=== PATIENT | male | born 1995 | race Caucasian/White ===

== ENCOUNTER 2025-04-22 11:57 | Emergency (ER) | payer OTHER, SELFPAY ==
[2025-04-22] VITALS (23 sets, daily range): BP systolic 143–169; BP diastolic 76–94; PULSE 69–94; RESP 8–22; TEMP 37.6; O2SAT 83–99
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
[2025-04-22 12:17] LABS: Abs Immature Grans 0.01 10^3/uL (0.0-0.06); HCT 43.2 % (40.0-50.0); HGB 15.6 g/dL (13.5-17.5); Immature Grans % 0.2 %; MCH 30.4 pg (27.0-33.0); MCHC 36.1 % (32.0-36.0); MCV 84 fL (80-95); MPV 9.3 fL (8.0-11.0); Platelet Count 289 10^3/uL (130-400); RBC 5.14 10^6/uL (4.36-5.78); RDW 11.2 % (11.8-14.1); RDW-SD 34.5 fL; WBC 5.83 10^3/uL (4.4-10.8)
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
[2025-04-22 12:30] LABS: ALT 35 U/L (16-63); AST 25 U/L (15-37); Albumin 4.4 g/dL (3.4-5.0); Alkaline Phosphatase 63 U/L (46-116); Anion Gap 12.7 mmol/L (3-11); BUN 13 mg/dL (7-18); Bilirubin, Total 0.4 mg/dL (0.2-1.0); CO2 24.3 mmol/L (21.0-32.0); Calcium 8.9 mg/dL (8.5-10.1); Chloride 103 mmol/L (98-107); Estimated GFR 117.10 (mL/min/1.73m2); Glucose 145 mg/dL (74-106); Magnesium 1.8 mg/dL (1.8-2.4); Potassium 3.5 mmol/L (3.5-5.1); Sodium 140 mmol/L (136-145); Total Protein 7.6 g/dL (6.4-8.2)
[2025-04-22 12:36] LABS: INR 1.1 (0.9-1.1); Prothrombin Time 10.6 sec (9.1-11.1)
[2025-04-22] MEDS: Omnipaque 350 MG/ML 100 ML BTL IJ (12:42)
[2025-04-22] MEDS: Normal Saline - Diluent 50 ML VIAL IJ (12:42)
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
== END 2025-04-22 14:35 | disposition home or self-care (01) ==
LOC: ER 14:19
PROVIDERS: Emergency Provider Emergency Medicine
DX: R41.82 Altered mental status, unspecified (principal); S06.0X0A Concussion without loss of consciousness, initial encounter; V18.4XXA Pedal cycle driver injured in noncollision transport accident in traffic accident, initial encounter; Y92.482 Bike path as the place of occurrence of the external cause; Y93.55 Activity, bike riding
CPT/HCPCS: 74177; 76705; 76857; 80053; 93308; 99285; 70450; 71260; 72125; 73030; 80320; 83735; 85025; 85610; 99284; J3490